=== PATIENT | female | born 1945 | race African-American/Black ===

== ENCOUNTER → 2023-06-17 08:06 | Outpatient (REF) | payer OTHER, SELFPAY | LOC: PAVMRI 08:06 | PROVIDERS: ATTENDING PHYSICIAN Internal Medicine | DX: M65.20 Calcific tendinitis, unspecified site (principal); M19.011 Primary osteoarthritis, right shoulder; M71.40 Calcium deposit in bursa, unspecified site | CPT/HCPCS: 73221 ==